=== PATIENT | male | born 1970 | race Caucasian/White ===

== ENCOUNTER → 2016-11-25 12:50 | Outpatient (CLI) | payer MEDICARE | END | disposition home or self-care (01) | LOC: D.MRI 12:50 | DX: M47.12 Other spondylosis with myelopathy, cervical region (principal) ==

== ENCOUNTER → 2017-10-10 15:10 | Outpatient (CLI) | payer MEDICARE | END | disposition home or self-care (01) | LOC: D.MRI 15:10 | DX: M51.36 Other intervertebral disc degeneration, lumbar region (principal) ==